=== PATIENT | female | born 1980 | race Two or more races ===

== ENCOUNTER 2019-11-28 16:57 | Emergency (ER) | payer MEDICAID ==
[~2019-11-28] VITALS: Ht 162.6 cm; Wt 68.0 kg
[2019-11-28 18:08] LABS: Urine Bacteria NONE SEEN /hpf (None Seen); Urine Blood Negative /uL (Negative); Urine Mucus FEW (None Seen); Urine Specific Gravity 1.006 (1.001-1.035); Urine WBC 2 /hpf (0 - 5)
[2019-11-28 18:42] LABS: Basophils # (auto) 0 10 ^3/uL (0-0.2); Basophils % (auto) 0.5 % (0.0-2.0); Eosinophils # (auto) 0.1 10 ^3/uL (0-0.8); Eosinophils % (auto) 0.9 % (0.0-7.0); Hematocrit 37.5 % (36.0-46.0); Hemoglobin 12.8 g/dL (12.2-16.2); Lymphocytes # (auto) 2.1 10 ^3/uL (0.4-5.4); Lymphocytes % (auto) 26.9 % (10.0-50.0); Mean Corpuscular Hemoglobin 30.7 pg (28.0-32.0); Mean Corpuscular Hgb Conc. 34.2 g/dL (32.0-36.0); Mean Corpuscular Volume 89.7 fL (80.0-100.0); Monocytes # (auto) 0.4 10 ^3/uL (0-1.3); Monocytes % (auto) 4.9 % (0.0-12.0); Neutrophils # (auto) 5.2 10 ^3/uL (1.6-8.6); Neutrophils % (auto) 66.8 % (37.0-80.0); Nucleated Red Blood Cells % 0.1 %; Platelet Count (auto) 177 10^3/uL (140-450); Red Blood Cells 4.18 10^6/uL (4.0-5.20); White Blood Cell 7.7 10^3/uL (4.4-10.8)
[2019-11-28 18:56] LABS: Calcium 8.6 mg/dL (8.5-10.1); Chloride 106 mmol/L (98-107); Potassium 3.4 mmol/L (3.5-5.1); Sodium 139 mmol/L (136-145)
[2019-11-28 19:04] LABS: Alanine Aminotransferase 21 U/L (13-56); Albumin 3.6 g/dL (3.4-5.0); Alkaline Phosphatase 68 U/L (45-117); Anion Gap 7 (5-15); Aspartate Aminotransferase 15 U/L (15-37); BUN/Creatinine Ratio 16.2; Bilirubin, Total 0.2 mg/dL (0.2-1.0); Blood Urea Nitrogen 11 mg/dL (7-18); Carbon Dioxide 26 mmol/L (21-32); GFR African American 126 mL/min; GFR Non-African American 104 mL/min; Glucose 82 mg/dL (74-106); Total Protein 7.7 g/dL (6.4-8.2)
[2019-11-28 20:49] LABS: Amylase 107 U/L (25-115); Lipase 139 U/L (73-393)
[2019-11-29 01:00] VITALS: BP 95/49
== END 2019-11-29 01:21 | disposition home or self-care (01) ==
LOC: ER 16:57
DX: R07.89 Other chest pain (principal); K29.00 Acute gastritis without bleeding; K80.20 Calculus of gallbladder without cholecystitis without obstruction
CPT/HCPCS: 36415; 71046; 76705; 80053; 81001; 82150; 83690; 84484; 85025; 93005

== ENCOUNTER 2021-06-26 02:00 | Emergency (ER) | payer MEDICAID ==
[~2021-06-26] VITALS: Ht 162.6 cm; Wt 70.8 kg
[2021-06-26] MEDS ORDERED: ONDANSETRON HCL 4 MG/2 ML VIAL ONE (02:36)
[2021-06-26] MEDS ORDERED: MORPHINE SULFATE 4 MG/ML SYR/VIAL ONE (02:37)
[2021-06-26] MEDS ORDERED: ONDANSETRON HCL 4 MG/2 ML VIAL IV ONE (02:45)
[2021-06-26] MEDS ORDERED: MORPHINE SULFATE 4 MG/ML SYR/VIAL IV ONE (02:45)
[2021-06-26 02:47] LABS: Potassium 3.4 mmol/L (3.5-5.1)
[2021-06-26 03:04] LABS: Basophils # (auto) 0 10 ^3/uL (0-0.2); Basophils % (auto) 0.6 % (0.0-2.0); Eosinophils # (auto) 0.1 10 ^3/uL (0-0.8); Eosinophils % (auto) 1.5 % (0.0-7.0); Hematocrit 38.9 % (36.0-46.0); Hemoglobin 13.3 g/dL (12.2-16.2); Lymphocytes # (auto) 2.9 10 ^3/uL (0.4-5.4); Lymphocytes % (auto) 37.6 % (10.0-50.0); Mean Corpuscular Hgb Conc. 34.3 g/dL (32.0-36.0); Mean Corpuscular Volume 93.2 fL (80.0-100.0); Monocytes # (auto) 0.6 10 ^3/uL (0-1.3); Monocytes % (auto) 7.8 % (0.0-12.0); Neutrophils % (auto) 52.5 % (37.0-80.0); Nucleated Red Blood Cells % 0.2 %; Red Blood Cells 4.17 10^6/uL (4.0-5.20); Red Cell Distribution Width 14.1 % (11.8-14.3); White Blood Cell 7.6 10^3/uL (4.4-10.8)
[2021-06-26 03:55] LABS: Urine Amorphous Crystal FEW /hpf (None Seen); Urine Bacteria FEW /hpf (None Seen); Urine Blood Negative /uL (Negative); Urine Specific Gravity 1.008 (1.001-1.035); Urine WBC 4 /hpf (0 - 5)
[2021-06-26 06:00] VITALS: BP 95/44
[2021-06-26] MEDS ORDERED: ONDA-144 PO (07:40)
[2021-06-26] MEDS ORDERED: ACET-1079 PO (07:40)
== END 2021-06-26 08:18 | disposition home or self-care (01) ==
LOC: ER 02:02
DX: K80.20 Calculus of gallbladder without cholecystitis without obstruction (principal); K80.50 Calculus of bile duct without cholangitis or cholecystitis without obstruction
CPT/HCPCS: 36415; 76705; 80048; 81001; 83605; 83690; 85025; 96374; 96375; 99285; J2270; J2405

== ENCOUNTER 2021-12-10 19:11 | Emergency (ER) | payer MEDICAID ==
[~2021-12-10] VITALS: Ht 160 cm; Wt 65.8 kg
[~2021-12-10 19:11] MED LIST: ACET-1079 PO; ONDA-144 PO
[2021-12-10] MEDS ORDERED: TETANUS-DIPTH-ACEL PERTUSSIS 0.5ML SYR Tdap IM ONE (20:15)
[2021-12-10 20:22] VITALS: BP 118/69
== END 2021-12-10 20:45 | disposition home or self-care (01) ==
LOC: ER 19:13
DX: S61.211A Laceration without foreign body of left index finger without damage to nail, initial encounter (principal); W26.0XXA Contact with knife, initial encounter; Y93.89 Activity, other specified; Y92.89 Other specified places as the place of occurrence of the external cause; Y99.8 Other external cause status
CPT/HCPCS: 12001; 90471; 90715

== ENCOUNTER 2021-12-13 12:42 | Emergency (ER) | payer MEDICAID ==
[~2021-12-13] VITALS: Ht 162.6 cm; Wt 65.8 kg
[2021-12-13 12:45] VITALS: BP 109/57
== END 2021-12-13 19:45 | disposition left against medical advice (07) ==
LOC: ER 12:42
DX: S61.412A Laceration without foreign body of left hand, initial encounter (principal); Z53.21 Procedure and treatment not carried out due to patient leaving prior to being seen by health care provider; W26.0XXA Contact with knife, initial encounter; Y93.89 Activity, other specified; Y92.89 Other specified places as the place of occurrence of the external cause; Y99.8 Other external cause status